=== PATIENT | male | born 1930 | race Caucasian/White ===

== ENCOUNTER 2018-12-22 06:02 | Day surgery (SDC) | payer MEDICARE, BC ==
[2018-12-22] MEDS ORDERED: KETAMINE HCL 100MG/1ML VIAL INJ ONE (06:03)
[2018-12-22] MEDS ORDERED: MIDAZOLAM HCL 2MG/2ML VIAL IV ONE (06:03)
[2018-12-22] MEDS ORDERED: 0.9 % SODIUM CHLORIDE 1000ML 1,000 ML IV ONE (06:53)
[2018-12-22] MEDS ORDERED: TETRACAINE HCL 0.5% OPTH 2ML SOLU OPTH ONE (08:03)
[2018-12-22] MEDS ORDERED: BRIMONIDINE TARTRATE 0.2% OPTHALMIC DROPS OP ONE (08:03)
[2018-12-22] MEDS ORDERED: TIMOLOL MALEATE 0.5% 5ML BTL OPTH ONE (08:03)
[2018-12-22] MEDS ORDERED: NEOM/BACI/POLY/HC 3.5 GM OPTH OINT OPTH ONE (08:03)
[2018-12-22] MEDS ORDERED: EPINEPHRINE 1 MG/ML AMPUL IO ONE (08:03)
[2018-12-22] MEDS ORDERED: LIDOCAINE 2% MDV (20MG/ML) 20ML VIAL INJ ONE (08:03)
--- NOTE | 2018-12-23 20:32 | Operative Note ---
DATE OF PROCEDURE: 12/22/18. PREOPERATIVE DIAGNOSIS: Nuclear sclerotic cataract, left eye. POSTOPERATIVE DIAGNOSIS: Nuclear sclerotic cataract, left eye. OPERATION: Cataract extraction with implantation of Toric intraocular lens. LENS IMPLANT USED: [employer] Model [id number] + 20.5 diopters placed at a 180 degree position. PROCEDURE IN DETAIL: The patient was given a retrobulbar and facial nerve block in the usual fashion and prepped and draped as well. Attention was directed to the left eye, after which the paracentesis wound was placed 2 hours to the left and right of the intended final axis of the intraocular lens. The incision was placed temporally and was dissected into clear cornea. The chamber was deepened with Viscoelastic and a keratome used to enter. The continuous circular capsulorrhexis was accomplished without difficulty after the lens was removed in a divide and conquer technique. The residual cortical material was irrigated and aspirated from the eye, after which the bag and chamber were then reinflated with Viscoelastic and the intraocular lens injected into the bag and oriented approximately 10 to 15 short of the final axis. The Viscoelastic was irrigated and aspirated from the eye, after which the lens was rotated into a position of orientation 180 degrees. The chamber was examined. It was noted to be stable. The wounds were hydrated and were noted to be water-tight. The eye was patched and shielded and the patient transferred to the Recovery Room in stable condition. JOB NUMBER: [id number] MTDD
== END 2018-12-22 08:54 | disposition home or self-care (01) ==
LOC: SUR 06:02
PROVIDERS: ATTEND Ophthalmology
DX: H25.12 Age-related nuclear cataract, left eye (principal); I10 Essential (primary) hypertension; M19.90 Unspecified osteoarthritis, unspecified site; E11.9 Type 2 diabetes mellitus without complications; I25.2 Old myocardial infarction; I25.10 Atherosclerotic heart disease of native coronary artery without angina pectoris; Z95.1 Presence of aortocoronary bypass graft
CPT/HCPCS: J0171; J3490; J7030